=== PATIENT | male | born 1955 | race African-American/Black ===

== ENCOUNTER 2016-11-12 11:53 | Emergency (ER) | payer OTHER ==
[2016-11-12 12:12] LABS: BASOPHIL COUNT 0.1 K/uL (0-0.1); EOSINOPHIL (%) 1.7 % (0-5); EOSINOPHIL COUNT 0.1 K/uL (0-0.3); HEMATOCRIT 41.5 % (38.0-50.0); IMMATURE GRANULOCYTE (%) 0.3 % (0.0-0.7); INSTRUMENT ABS NEUTROPHIL CT 4.3 K/uL; LYMPHOCYTE COUNT 1.9 K/uL (1.0-2.8); MCV 91.2 FL (86-99); MEAN PLAT.VOLUME 9.7 uM^3 (9.0-12.4); MONOCYTE (%) 7.8 % (3-12); MONOCYTE COUNT 0.5 K/uL (0-0.8); NEUTROPHIL (%) 62.4 % (45-76); NEUTROPHIL COUNT 4.3 K/uL (1.8-6.4); PLATELET COUNT 177 K/uL (156-360); RBC DIS.WIDTH-CV 12.3 % (11.8-14.6); RBC DIS.WIDTH-SD 41.4 % (39-53); RED BLOOD COUNT 4.55 M/uL (4.00-5.50); WHITE BLOOD COUNT 6.9 K/uL (4.1-10.2)
[2016-11-12 12:20] LABS: AMYLASE 91 IU/L (1-118); CHLORIDE 109 mEq/L (99-109); POTASSIUM 3.8 mEq/L (3.7-5.4); SODIUM 141 mEq/L (136-147)
[2016-11-12 12:22] LABS: GLUCOSE 93 mg/dL (70-99)
[2016-11-12 12:23] LABS: ANION GAP 9 MEQ/L (2-14)
[2016-11-12 12:25] LABS: SERUM ETHYL ALCOHOL < 10 mg/dL
[2016-11-12 12:26] LABS: GFR ESTIMATE (CALCULATED) > 59 mL/min/; UREA NITROGEN (BUN) 11 mg/dL (9-23)
[2016-11-12 12:29] LABS: LIPASE 58 U/L (1.0-51.0)
[2016-11-12] MEDS ORDERED: PERCOCET 5/31 TABLET PO (14:52)
== END 2016-11-12 15:13 | disposition home or self-care (01) ==
LOC: TRA 11:53 → EDBD 11:53 → TRA 15:13
PROVIDERS: Emergency Medicine
DX: S20.229A Contusion of unspecified back wall of thorax, initial encounter (principal); S30.1XXA Contusion of abdominal wall, initial encounter; V49.50XA Passenger injured in collision with unspecified motor vehicles in traffic accident, initial encounter; M54.9 Dorsalgia, unspecified; M54.2 Cervicalgia; M25.512 Pain in left shoulder; R20.0 Anesthesia of skin; R20.2 Paresthesia of skin; Z79.82 Long term (current) use of aspirin; Z86.73 Personal history of transient ischemic attack (TIA), and cerebral infarction without residual deficits
CPT/HCPCS: 70450; 71260; 72125; 72129; 72132; 73030; 73080; 74177; 80048; 81003; 82150; 83690; 85025; 86900; 86901; 99281; 99285; G0480; J2270